=== PATIENT | female | born 1995 | race African-American/Black ===

== ENCOUNTER 2019-01-17 16:21 | Emergency (ER) | payer OTHER ==
[~2019-01-17] VITALS: Ht 162.6 cm; Wt 61.2 kg
[~2019-01-17 16:21] MED LIST: CITRATE OF MAG296 ML PO; COLACE100 MG PO; HYDROCODON-ACE1 EAC7 PO; IBUPROFEN 600600 M1 PO; KEFLEX500 MG PO; LAXATIVE5 M1 PO; ONDANSETRON HCL4 M2 PO; PRENATAL TABLE1 EAC3 PO; TRINATE TABLET1 TAB; ULTRAM 50MG TAB50 MG PO; UNISOM SLEEP AI25 MG PO
[2019-01-17 16:39] LABS: URINE BILIRUBIN NEGATIVE (Negative); URINE BLOOD NEGATIVE (Negative); URINE COLOR YELLOW; URINE GLUCOSE-RANDOM* NEGATIVE (Negative); URINE KETONES NEGATIVE (Negative); URINE NITRITE-REFLEX NEGATIVE (Negative); URINE PROTEIN (DIPSTICK) NEGATIVE (Negative); URINE UROBILINOGEN 0.2 E.U./dl (0.2-1.0)
[2019-01-17 16:41] LABS: URINE CLARITY HAZY; URINE LEUKOCYTES-REFLEX 1+ (Negative)
[2019-01-17 16:56] LABS: CASTS None Seen /LPF (None Seen); SQUAMOUS 0-3 Few /LPF (0-3); URINE RBC None Seen /HPF (0-2); URINE WBC-REFLEX 6-15 Few /HPF (0-5)
[2019-01-17 16:57] LABS: AMORPHOUS PHOSPHATES Moderate /LPF (None Seen)
[2019-01-17] MEDS ORDERED: KEFLEX500 M1 PO (18:28)
[2019-01-17 18:33] VITALS: BP 135/78
== END 2019-01-17 18:45 | disposition home or self-care (01) ==
LOC: ER 16:21
PROVIDERS: Physician Assistant
DX: N39.0 Urinary tract infection, site not specified (principal)

== ENCOUNTER 2019-01-21 12:52 | Emergency (ER) | payer OTHER ==
[~2019-01-21] VITALS: Ht 167.6 cm; Wt 74.8 kg
[~2019-01-21 12:52] MED LIST changes: +KEFLEX500 M1 PO
[2019-01-21 13:11] LABS: URINE BILIRUBIN NEGATIVE (Negative); URINE BLOOD NEGATIVE (Negative); URINE CLARITY CLEAR; URINE COLOR YELLOW; URINE GLUCOSE-RANDOM* NEGATIVE (Negative); URINE KETONES NEGATIVE (Negative); URINE LEUKOCYTES-REFLEX NEGATIVE (Negative); URINE NITRITE-REFLEX NEGATIVE (Negative); URINE PROTEIN (DIPSTICK) NEGATIVE (Negative); URINE SPECIFIC GRAVITY >= 1.030 (1.005-1.035); URINE UROBILINOGEN 0.2 E.U./dl (0.2-1.0)
[2019-01-21 14:14] LABS: ABSOLUTE NEUTROPHILS 1.9 thou/uL (1.4-8.2); EOSINOPHILS 3.8 % (0.0-3.0); HEMATOCRIT 37.1 % (37.0-47.0); HEMOGLOBIN 12.2 gm/dL (12.0-15.0); LYMPHOCYTES 47.8 % (24.0-44.0); MCH 27.8 pg (26.0-34.0); MCV 84.4 fL (80.0-100.0); MONOCYTES 10.5 % (1.0-8.0); PLATELET COUNT 257 thou/uL (150-400); POLYS 36.9 % (36.0-66.0); RBC 4.39 mil/uL (4.20-5.00); RDW 14.4 % (10.5-14.5); WBC 5.1 thou/uL (4.0-11.0)
[2019-01-21 14:24] LABS: ANION GAP 10 mmol/L (7-16); BUN 11 mg/dL (7-18); CALCIUM 9.3 mg/dL (8.5-10.1); CHLORIDE 104 mmol/L (98-107); CO2 25 mmol/L (21-32); CREATININE 0.8 mg/dL (0.6-1.0); GLUCOSE 83 mg/dL (74-106); POTASSIUM 4.1 mmol/L (3.5-5.1); SODIUM 139 mmol/L (136-145)
[2019-01-21 14:30] LABS: ALBUMIN 3.7 g/dL (3.4-5.0); DIRECT BILIRUBIN < 0.1 mg/dL (<0.1-0.3); LIPASE 120 U/L (73-393); SGOT 19 U/L (15-37); SGPT 25 U/L (30-65); TOTAL BILIRUBIN 0.1 mg/dL (<0.1-1.0); TOTAL PROTEIN 7.3 g/dL (6.4-8.2)
[2019-01-21] MEDS ORDERED: OMEPRAZOLE 20 M20 M1 PO (14:42)
[2019-01-21] MEDS ORDERED: KEFLEX500 M1 PO (14:42)
[2019-01-21 14:55] VITALS: BP 112/78
== END 2019-01-21 15:02 | disposition home or self-care (01) ==
LOC: ER 12:52
PROVIDERS: Nurse Practitioner
DX: K21.9 Gastro-esophageal reflux disease without esophagitis (principal); N39.0 Urinary tract infection, site not specified

== ENCOUNTER 2019-04-28 17:52 | Emergency (ER) | payer OTHER ==
[~2019-04-28] VITALS: Ht 167.6 cm; Wt 90.7 kg
[~2019-04-28 17:52] MED LIST changes: +OMEPRAZOLE 20 M20 M1 PO
[2019-04-28 18:19] LABS: URINE BILIRUBIN NEGATIVE (Negative); URINE BLOOD NEGATIVE (Negative); URINE CLARITY CLEAR; URINE COLOR YELLOW; URINE GLUCOSE-RANDOM* NEGATIVE (Negative); URINE KETONES NEGATIVE (Negative); URINE NITRITE-REFLEX NEGATIVE (Negative); URINE PROTEIN (DIPSTICK) NEGATIVE (Negative); URINE SPECIFIC GRAVITY >= 1.030 (1.005-1.035)
[2019-04-28 18:26] LABS: URINE LEUKOCYTES-REFLEX 2+ (Negative)
[2019-04-28 18:33] LABS: HEMOGLOBIN 12.8 gm/dL (12.0-15.0); MCHC 32.9 g/dL (28.0-37.0); MCV 85.3 fL (80.0-100.0); RBC 4.57 mil/uL (4.20-5.00); RDW 14.4 % (10.5-14.5)
[2019-04-28 18:35] LABS: MUCUS >6 Heavy strn/LPF (None Seen); SQUAMOUS >10 Many /LPF (0-3)
[2019-04-28 18:36] LABS: CASTS None Seen /LPF (None Seen); CRYSTALS None Seen /LPF (None Seen); RENAL EPITHELIAL CELLS 0-3 Few /LPF (None Seen); TRANSITIONAL EPITHEL CELL 0-3 Few /LPF (None Seen); URINE RBC 0-2 Rare /HPF (0-2)
[2019-04-28 18:42] LABS: CALCIUM 9.1 mg/dL (8.5-10.1); CREATININE 0.9 mg/dL (0.6-1.0); POTASSIUM 3.7 mmol/L (3.5-5.1)
[2019-04-28 18:48] LABS: TOTAL BILIRUBIN 0.5 mg/dL (<0.1-1.0); TOTAL PROTEIN 7.6 g/dL (6.4-8.2)
[2019-04-28] MEDS ORDERED: MIRALAX17 GM PO (19:03)
[2019-04-28] MEDS ORDERED: MACROBID 100 M100 M1 PO (19:03)
[2019-04-28 19:25] VITALS: BP 127/86
== END 2019-04-28 19:25 | disposition home or self-care (01) ==
LOC: ER 17:52
PROVIDERS: Physician Assistant
DX: N39.0 Urinary tract infection, site not specified (principal); K59.00 Constipation, unspecified

== ENCOUNTER 2019-10-19 15:22 | Emergency (ER) | payer OTHER ==
[~2019-10-19] VITALS: Ht 162.6 cm; Wt 90.7 kg
[~2019-10-19 15:22] MED LIST changes: +MACROBID 100 M100 M1 PO; +MIRALAX17 GM PO
[2019-10-19 15:42] VITALS: BP 117/72
[2019-10-19 16:22] LABS: ABSOLUTE NEUTROPHILS 2.9 thou/uL (1.4-8.2); BASOPHILS 1.1 % (0.0-2.0); EOSINOPHILS 3.2 % (0.0-3.0); HEMATOCRIT 40.3 % (37.0-47.0); HEMOGLOBIN 12.9 gm/dL (12.0-15.0); LYMPHOCYTES 37.9 % (24.0-44.0); MCH 28.1 pg (26.0-34.0); MCHC 32.1 g/dL (28.0-37.0); MCV 87.6 fL (80.0-100.0); MONOCYTES 9.5 % (1.0-8.0); PLATELET COUNT 253 thou/uL (150-400); POLYS 48.3 % (36.0-66.0); RDW 13.7 % (10.5-14.5); WBC 6.1 thou/uL (4.0-11.0)
[2019-10-19 16:25] LABS: URINE BILIRUBIN NEGATIVE (Negative); URINE BLOOD NEGATIVE (Negative); URINE CLARITY CLEAR; URINE COLOR YELLOW; URINE GLUCOSE-RANDOM* NEGATIVE (Negative); URINE KETONES NEGATIVE (Negative); URINE LEUKOCYTES-REFLEX TRACE (Negative); URINE NITRITE-REFLEX NEGATIVE (Negative); URINE PROTEIN (DIPSTICK) NEGATIVE (Negative); URINE UROBILINOGEN 0.2 E.U./dl (0.2-1.0)
[2019-10-19 16:37] LABS: CALCIUM 9.8 mg/dL (8.5-10.1); CREATININE 0.7 mg/dL (0.6-1.0); POTASSIUM 4.2 mmol/L (3.5-5.1)
[2019-10-19 16:40] LABS: ALBUMIN 3.9 g/dL (3.4-5.0); TOTAL BILIRUBIN 0.3 mg/dL (<0.1-1.0); TOTAL PROTEIN 7.5 g/dL (6.4-8.2)
[2019-10-19] MEDS ORDERED: PEPCID20 MG PO (18:35)
== END 2019-10-19 18:48 | disposition home or self-care (01) ==
LOC: ER 15:22
PROVIDERS: Emergency Medicine
DX: R10.13 Epigastric pain (principal)

== ENCOUNTER 2020-10-22 08:25 | Emergency (ER) | payer OTHER ==
[~2020-10-22] VITALS: Ht 165.1 cm; Wt 72.6 kg
[~2020-10-22 08:25] MED LIST changes: +PEPCID20 MG PO
[2020-10-22 10:05] VITALS: BP 122/66
[2020-10-22] MEDS ORDERED: NOHOMEMEDICATIONS (10:09)
[2020-10-22] MEDS ORDERED: PENICILLIN VK500 M1 PO (10:22)
== END 2020-10-22 10:54 | disposition home or self-care (01) ==
LOC: ER 08:25
DX: J02.9 Acute pharyngitis, unspecified (principal); Z20.828 Contact with and (suspected) exposure to other viral communicable diseases

== ENCOUNTER 2020-11-11 07:52 | Emergency (ER) | payer OTHER ==
[~2020-11-11] VITALS: Ht 165.1 cm; Wt 68.0 kg
[~2020-11-11 07:52] MED LIST changes: +NOHOMEMEDICATIONS; +PENICILLIN VK500 M1 PO
[2020-11-11 07:53] VITALS: BP 115/72
[2020-11-11 08:24] LABS: URINE BILIRUBIN NEGATIVE (Negative); URINE BLOOD NEGATIVE (Negative); URINE CLARITY CLEAR; URINE COLOR YELLOW; URINE GLUCOSE-RANDOM* NEGATIVE (Negative); URINE KETONES NEGATIVE (Negative); URINE NITRITE-REFLEX NEGATIVE (Negative); URINE PROTEIN (DIPSTICK) NEGATIVE (Negative); URINE SPECIFIC GRAVITY 1.025 (1.005-1.035); URINE UROBILINOGEN 0.2 E.U./dl (0.2-1.0)
[2020-11-11 08:27] LABS: URINE LEUKOCYTES-REFLEX 1+ (Negative)
[2020-11-11 08:38] LABS: CASTS None Seen /LPF (None Seen); SQUAMOUS >10 Many /LPF (0-3)
[2020-11-11 08:39] LABS: MUCUS >6 Heavy strn/LPF (None Seen); URINE RBC 0-2 Rare /HPF (0-2); URINE WBC-REFLEX 0-5 Rare /HPF (0-5)
[2020-11-11 08:40] LABS: AMORPHOUS PHOSPHATES Few /LPF (None Seen)
== END 2020-11-11 10:26 | disposition home or self-care (01) ==
LOC: ER 07:52
PROVIDERS: Emergency Medicine
DX: N89.8 Other specified noninflammatory disorders of vagina (principal); Z20.2 Contact with and (suspected) exposure to infections with a predominantly sexual mode of transmission; R35.0 Frequency of micturition; R39.15 Urgency of urination

== ENCOUNTER 2020-11-22 17:07 | Emergency (ER) | payer OTHER ==
[~2020-11-22] VITALS: Ht 165.1 cm; Wt 72.6 kg
[2020-11-22 17:28] LABS: URINE BILIRUBIN NEGATIVE (Negative); URINE BLOOD NEGATIVE (Negative); URINE CLARITY CLEAR; URINE COLOR YELLOW; URINE GLUCOSE-RANDOM* NEGATIVE (Negative); URINE KETONES NEGATIVE (Negative); URINE NITRITE-REFLEX NEGATIVE (Negative); URINE PROTEIN (DIPSTICK) NEGATIVE (Negative); URINE SPECIFIC GRAVITY >= 1.030 (1.005-1.035); URINE UROBILINOGEN 0.2 E.U./dl (0.2-1.0)
[2020-11-22 17:29] LABS: URINE LEUKOCYTES-REFLEX 2+ (Negative)
[2020-11-22 17:58] LABS: MUCUS >6 Heavy strn/LPF (None Seen); SQUAMOUS >10 Many /LPF (0-3)
[2020-11-22 18:00] LABS: CASTS None Seen /LPF (None Seen); CRYSTALS None Seen /LPF (None Seen); URINE RBC 0-2 Rare /HPF (0-2)
[2020-11-22] MEDS ORDERED: NORCO 5-325 TA1 EAC2 PO (22:08)
[2020-11-22 22:27] VITALS: BP 108/75
[2020-11-22] MEDS ORDERED: KEFLEX500 M1 PO (22:27)
== END 2020-11-22 22:32 | disposition home or self-care (01) ==
LOC: ER 17:07
PROVIDERS: Emergency Medicine
DX: S32.018A Other fracture of first lumbar vertebra, initial encounter for closed fracture (principal); S32.028A Other fracture of second lumbar vertebra, initial encounter for closed fracture; S32.038A Other fracture of third lumbar vertebra, initial encounter for closed fracture; S32.048A Other fracture of fourth lumbar vertebra, initial encounter for closed fracture; N39.0 Urinary tract infection, site not specified; Y04.2XXA Assault by strike against or bumped into by another person, initial encounter; Y93.89 Activity, other specified; Y92.89 Other specified places as the place of occurrence of the external cause; Y99.8 Other external cause status

== ENCOUNTER 2020-12-27 17:59 | Emergency (ER) | payer OTHER ==
[~2020-12-27] VITALS: Ht 165.1 cm; Wt 72.6 kg
[~2020-12-27 17:59] MED LIST changes: +NORCO 5-325 TA1 EAC2 PO
[2020-12-27 18:12] LABS: URINE BILIRUBIN NEGATIVE (Negative); URINE BLOOD NEGATIVE (Negative); URINE CLARITY CLEAR; URINE COLOR YELLOW; URINE GLUCOSE-RANDOM* NEGATIVE (Negative); URINE KETONES NEGATIVE (Negative); URINE LEUKOCYTES-REFLEX TRACE (Negative); URINE NITRITE-REFLEX NEGATIVE (Negative); URINE PROTEIN (DIPSTICK) NEGATIVE (Negative); URINE SPECIFIC GRAVITY >= 1.030 (1.005-1.035); URINE UROBILINOGEN 0.2 E.U./dl (0.2-1.0)
[2020-12-27 20:20] VITALS: BP 124/69
== END 2020-12-27 20:20 | disposition home or self-care (01) ==
LOC: ER 17:59
PROVIDERS: Physician Assistant
DX: R35.0 Frequency of micturition (principal)

== ENCOUNTER 2021-01-21 08:23 | Emergency (ER) | payer OTHER ==
[~2021-01-21] VITALS: Ht 165.1 cm; Wt 74.8 kg
[2021-01-21 08:31] VITALS: BP 128/71
[2021-01-21 08:54] LABS: URINE BILIRUBIN NEGATIVE (Negative); URINE BLOOD NEGATIVE (Negative); URINE CLARITY CLEAR; URINE COLOR YELLOW; URINE GLUCOSE-RANDOM* NEGATIVE (Negative); URINE KETONES NEGATIVE (Negative); URINE LEUKOCYTES-REFLEX NEGATIVE (Negative); URINE NITRITE-REFLEX NEGATIVE (Negative); URINE PROTEIN (DIPSTICK) NEGATIVE (Negative); URINE SPECIFIC GRAVITY 1.025 (1.005-1.035); URINE UROBILINOGEN 0.2 E.U./dl (0.2-1.0)
[2021-01-21] MEDS ORDERED: KEFLEX500 M1 PO (09:03)
== END 2021-01-21 09:10 | disposition home or self-care (01) ==
LOC: ER 08:23
PROVIDERS: Emergency Medicine
DX: R30.0 Dysuria (principal)

== ENCOUNTER 2021-08-24 10:35 | Emergency (ER) | payer OTHER ==
[~2021-08-24] VITALS: Ht 165.1 cm; Wt 72.6 kg
[2021-08-24 10:42] VITALS: BP 114/70
[2021-08-24] MEDS ORDERED: NYSTATIN15 G3 TOP (11:20)
== END 2021-08-24 11:27 | disposition home or self-care (01) ==
LOC: ER 10:35
DX: B37.49 Other urogenital candidiasis (principal)

== ENCOUNTER 2021-08-27 09:22 | Emergency (ER) | payer OTHER ==
[~2021-08-27] VITALS: Ht 165.1 cm; Wt 72.6 kg
[~2021-08-27 09:22] MED LIST changes: +NYSTATIN15 G3 TOP
[2021-08-27 09:40] VITALS: BP 121/43
[2021-08-27 09:51] LABS: URINE BILIRUBIN NEGATIVE (Negative); URINE BLOOD 1+ (Negative); URINE CLARITY CLEAR; URINE COLOR YELLOW; URINE GLUCOSE-RANDOM* NEGATIVE (Negative); URINE KETONES NEGATIVE (Negative); URINE NITRITE-REFLEX NEGATIVE (Negative); URINE PROTEIN (DIPSTICK) NEGATIVE (Negative); URINE SPECIFIC GRAVITY 1.025 (1.005-1.035)
[2021-08-27 09:54] LABS: URINE LEUKOCYTES-REFLEX 1+ (Negative)
[2021-08-27 10:04] LABS: BACTERIA-REFLEX 1-9 Few /HPF (None Seen); CASTS None Seen /LPF (None Seen); SQUAMOUS 0-3 Few /LPF (0-3); URINE RBC 1-2 Rare /HPF (NONE SEEN); URINE WBC-REFLEX 6-15 Few /HPF (0-5)
[2021-08-27 10:05] LABS: CRYSTALS None Seen /LPF (None Seen)
[2021-08-27] MEDS ORDERED: CEPHALEXIN500 MG PO (10:32)
[2021-08-27] MEDS ORDERED: PYRIDIUM200 MG PO (10:32)
== END 2021-08-27 11:34 | disposition home or self-care (01) ==
LOC: ER 09:22
PROVIDERS: Emergency Medicine
DX: N39.0 Urinary tract infection, site not specified (principal); Z79.899 Other long term (current) drug therapy

== ENCOUNTER 2021-11-07 08:01 | Emergency (ER) | payer OTHER ==
[~2021-11-07] VITALS: Ht 165.1 cm; Wt 72.6 kg
[~2021-11-07 08:01] MED LIST changes: +CEPHALEXIN500 MG PO; +PYRIDIUM200 MG PO
[2021-11-07 08:21] LABS: URINE BILIRUBIN NEGATIVE (Negative); URINE BLOOD NEGATIVE (Negative); URINE CLARITY CLEAR; URINE COLOR YELLOW; URINE GLUCOSE-RANDOM* NEGATIVE (Negative); URINE KETONES NEGATIVE (Negative); URINE LEUKOCYTES-REFLEX TRACE (Negative); URINE NITRITE-REFLEX NEGATIVE (Negative); URINE PROTEIN (DIPSTICK) NEGATIVE (Negative); URINE SPECIFIC GRAVITY 1.025 (1.005-1.035); URINE UROBILINOGEN 0.2 E.U./dl (0.2-1.0)
[2021-11-07 09:19] VITALS: BP 113/70
== END 2021-11-07 09:19 | disposition home or self-care (01) ==
LOC: ER 08:01
PROVIDERS: Student in an Organized Health Care Education/Training Program
DX: R21 Rash and other nonspecific skin eruption (principal); Z79.899 Other long term (current) drug therapy

== ENCOUNTER 2021-11-30 17:31 | Emergency (ER) | payer OTHER ==
[~2021-11-30] VITALS: Ht 167.6 cm; Wt 81.7 kg
[2021-11-30 17:32] VITALS: BP 121/97
[2021-11-30 18:48] LABS: URINE BILIRUBIN NEGATIVE (Negative); URINE BLOOD NEGATIVE (Negative); URINE CLARITY CLEAR; URINE COLOR YELLOW; URINE GLUCOSE-RANDOM* NEGATIVE (Negative); URINE KETONES NEGATIVE (Negative); URINE LEUKOCYTES-REFLEX NEGATIVE (Negative); URINE NITRITE-REFLEX NEGATIVE (Negative); URINE PROTEIN (DIPSTICK) NEGATIVE (Negative); URINE UROBILINOGEN 0.2 E.U./dl (0.2-1.0)
[2021-11-30] MEDS ORDERED: METRONIDAZOLE500 M4 PO (18:54)
== END 2021-11-30 23:00 | disposition home or self-care (01) ==
LOC: ER 17:31
PROVIDERS: Nurse Practitioner Family
DX: N76.0 Acute vaginitis (principal); Z20.822 Contact with and (suspected) exposure to COVID-19; B96.89 Other specified bacterial agents as the cause of diseases classified elsewhere; Z79.899 Other long term (current) drug therapy; Z20.2 Contact with and (suspected) exposure to infections with a predominantly sexual mode of transmission

== ENCOUNTER 2021-12-26 17:55 | Emergency (ER) | payer OTHER ==
[~2021-12-26] VITALS: Ht 165.1 cm; Wt 72.6 kg
[~2021-12-26 17:55] MED LIST changes: +METRONIDAZOLE500 M4 PO
[2021-12-26 17:59] VITALS: BP 128/75
[2021-12-26 18:28] LABS: URINE BILIRUBIN NEGATIVE (Negative); URINE BLOOD 2+ (Negative); URINE CLARITY CLEAR; URINE COLOR YELLOW; URINE GLUCOSE-RANDOM* NEGATIVE (Negative); URINE KETONES NEGATIVE (Negative); URINE LEUKOCYTES-REFLEX TRACE (Negative); URINE NITRITE-REFLEX NEGATIVE (Negative); URINE PROTEIN (DIPSTICK) NEGATIVE (Negative); URINE SPECIFIC GRAVITY 1.025 (1.005-1.035)
[2021-12-26 18:33] LABS: ABSOLUTE NEUTROPHILS 4.1 thou/uL (1.4-8.2); BASOPHILS 0.7 % (0.0-2.0); EOSINOPHILS 3.2 % (0.0-3.0); HEMATOCRIT 40.4 % (37.0-47.0); HEMOGLOBIN 13.1 gm/dL (12.0-15.0); LYMPHOCYTES 22.3 % (24.0-44.0); MCH 28.5 pg (26.0-34.0); MCHC 32.4 g/dL (28.0-37.0); MCV 88.1 fL (80.0-100.0); MONOCYTES 9.1 % (1.0-8.0); PLATELET COUNT 254 thou/uL (150-400); POLYS 64.7 % (36.0-66.0); RBC 4.59 mil/uL (4.20-5.00); RDW 13.7 % (10.5-14.5); WBC 6.3 thou/uL (4.0-11.0)
[2021-12-26 18:44] LABS: SQUAMOUS 4-10 Moderate /LPF (0-3); URINE RBC >20 Many /HPF (NONE SEEN); URINE WBC-REFLEX 0-5 Rare /HPF (0-5)
[2021-12-26 18:45] LABS: CASTS None Seen /LPF (None Seen); CRYSTALS None Seen /LPF (None Seen)
[2021-12-26 18:46] LABS: CALCIUM 9.2 mg/dL (8.5-10.1); CREATININE 0.8 mg/dL (0.6-1.0); POTASSIUM 4.1 mmol/L (3.5-5.1)
[2021-12-26 18:50] LABS: ALBUMIN 4.2 g/dL (3.4-5.0); TOTAL BILIRUBIN 0.4 mg/dL (0.2-1.0); TOTAL PROTEIN 7.6 g/dL (6.4-8.2)
== END 2021-12-26 19:42 | disposition home or self-care (01) ==
LOC: ER 17:55
PROVIDERS: Nurse Practitioner
DX: N93.9 Abnormal uterine and vaginal bleeding, unspecified (principal); Z79.899 Other long term (current) drug therapy; Z79.891 Long term (current) use of opiate analgesic

== ENCOUNTER 2021-12-30 12:38 | Emergency (ER) | payer OTHER ==
[~2021-12-30] VITALS: Ht 165.1 cm; Wt 72.6 kg
[2021-12-30 14:04] LABS: URINE BILIRUBIN NEGATIVE (Negative); URINE BLOOD 3+ (Negative); URINE CLARITY SL CLOUDY; URINE COLOR YELLOW; URINE GLUCOSE-RANDOM* NEGATIVE (Negative); URINE KETONES TRACE (Negative); URINE NITRITE-REFLEX NEGATIVE (Negative); URINE PROTEIN (DIPSTICK) TRACE (Negative); URINE SPECIFIC GRAVITY >= 1.030 (1.005-1.035); URINE UROBILINOGEN 0.2 E.U./dl (0.2-1.0)
[2021-12-30 14:05] LABS: URINE LEUKOCYTES-REFLEX 1+ (Negative)
[2021-12-30] MEDS ORDERED: DOXYCYCLINE 10100 MG PO (14:07)
[2021-12-30 14:11] LABS: CASTS None Seen /LPF (None Seen); CRYSTALS None Seen /LPF (None Seen); MUCUS >6 Heavy strn/LPF (None Seen); SQUAMOUS >10 Many /LPF (0-3); URINE RBC 3-10 Few /HPF (NONE SEEN); URINE WBC-REFLEX >25 Many /HPF (0-5)
[2021-12-30] MEDS ORDERED: BACTRIM DS TAB1 EACH PO (14:19)
[2021-12-30 14:38] VITALS: BP 113/70
== END 2021-12-30 14:39 | disposition home or self-care (01) ==
LOC: ER 12:38
PROVIDERS: Nurse Practitioner
DX: N39.0 Urinary tract infection, site not specified (principal)